=== PATIENT | female | born 1995 | race Caucasian/White ===

== ENCOUNTER 2017-01-10 01:24 | Emergency (ER) | payer OTHER ==
[~2017-01-10 01:24] MED LIST: PROZAC DPS20 MG PO
--- NOTE | 2017-01-10 19:59 | ER ---
ADMIT: 01/10/2017 RM/LOC: ER [facility] MR#: [id number] [place], [place] [id number] SONIDO ROSADO [address] [id number] Emergency Room Report SEX: F AGE: 21 : 1995 DATE: 01/10/2017 The patient is a 21-year-old female, came to the ER with chief complaint of a week of right upper tooth pain. The patient states she had tooth decay but did not follow up with the dentist. The pain is sharp and increases with drinking cold water. The patient has no drooling or voice changes or trismus. The patient has stable vitals and was afebrile. In the head and neck, there is no obvious swelling of the face or submandibular area. There is no raised mouth floor area, and there is no oropharyngeal mass and no peritonsillar abscesses. The patient has normal gingiva without any periodontal abscesses. The patient had tooth fracture, dental caries in the tooth right upper #3. After anesthetizing with local bupivacaine, the tooth was covered with Prolene. The patient states the pain decreased substantially. The patient received [place] p.o. and was discharged to home with return precautions, medications for pain control. Follow up with the dentist as soon as possible. Gee Cavazos MD/ will JOB #: [id number] CC: Gee Cavazos MD, Attending Physician Su Joe MD, Family Physician
== END 2017-01-10 02:30 | disposition home or self-care (01) ==
LOC: ER 01:24
DX: K03.81 Cracked tooth (principal); K02.9 Dental caries, unspecified; F17.210 Nicotine dependence, cigarettes, uncomplicated; Z90.5 Acquired absence of kidney

== ENCOUNTER 2017-01-19 05:28 | Emergency (ER) | payer OTHER, SELFPAY ==
--- NOTE | 2017-01-19 19:15 | ER ---
ADMIT: 01/19/2017 RM/LOC: ER [facility] MR#: [id number] [facility] [address] [place], [place] [address] SONIDO ROSADO [address] [id number] Emergency Room Report SEX: F AGE: 21 : 1995 DATE: 01/19/2017 The patient is a 21-year-old female, who developed acute epistaxis, coughing blood. No injury, fevers, chills, or preceding URI. The patient is status post right nephrectomy for benign congenital tumor. Exam remarkable for nontoxic, afebrile female with a clotted right anterior epistaxis. Treated initially with nasal clamp, Afrin spray, followed then by Xylocaine 4% topical with epinephrine, silver nitrate. Home with nasal clamp and Afrin three squirts 3 times a day for 3 days. Follow up with Dr. Pack as needed. Fermin Vega MD/ candelariol JOB #: [id number] CC: Fermin Vega MD, Attending Physician Devin Pack MD, Family Physician Devin Pack MD
== END 2017-01-19 06:30 | disposition home or self-care (01) ==
LOC: ER 05:28
PROC: 0W3Q7ZZ Control Bleeding in Respiratory Tract, Via Natural or Artificial Opening (ICD-10-PCS; principal; 2017-01-19)
DX: R04.0 Epistaxis (principal); F17.210 Nicotine dependence, cigarettes, uncomplicated; Z90.5 Acquired absence of kidney